=== PATIENT | male | born 1975 | race Caucasian/White ===

== ENCOUNTER 2019-01-09 05:42 | Inpatient (IN) | payer BC ==
[~2019-01-09] VITALS: Ht 172.7 cm; Wt 90.3 kg
[2019-01-09] MEDS ORDERED: SODIUM CHLORIDE 0.9% 1,000 ML IV ONE (06:06)
[2019-01-09 06:30] LABS: CHLORIDE 108 mEq/L (98-107)
[2019-01-09] MEDS ORDERED: LORAZEPAM 2MG/ML CPJ IV ONE (06:30)
[2019-01-09] MEDS ORDERED: DILTIAZEM HCL 5MG/ML 5ML VIAL IV ONE ×3 (06:30→08:30)
[2019-01-09 06:34] LABS: ETHANOL BLOOD < 10 mg/dL
[2019-01-09] MEDS ORDERED: CALCIUM CHLORIDE 1GM/10ML SYR IV ONE (06:45)
[2019-01-09 06:49] LABS: CLARITY URINE CLEAR (CLEAR); COLOR URINE YELLOW (YELLOW); KETONES URINE TRACE (NEGATIVE); LEUKOCYTE ESTERASE URINE NEGATIVE (NEGATIVE); NITRITE URINE NEGATIVE (NEGATIVE); OCCULT BLOOD URINE NEGATIVE (NEGATIVE); PROTEIN URINE NEGATIVE (NEGATIVE); SPECIFIC GRAVITY URINE 1.001 (1.005-1.030); UROBILINOGEN URINE 0.2 E.U./dL (0.2-1.0)
[2019-01-09 07:04] LABS: *AMPHETAMINES SCREEN URINE NEGATIVE (NEGATIVE); *BARBITURATES SCREEN URINE NEGATIVE (NEGATIVE); *BENZODIAZEPINES SCREEN URINE NEGATIVE (NEGATIVE); *COCAINE SCREEN URINE NEGATIVE (NEGATIVE); METHADONE URINE SCREEN NEGATIVE (NEGATIVE); OPIATES URINE SCREEN NEGATIVE (NEGATIVE)
[2019-01-09 07:05] LABS: CANNABINOID URINE SCREEN NEGATIVE (NEGATIVE); PHENCYCLIDINE URINE SCREEN NEGATIVE (NEGATIVE)
[2019-01-09] MEDS ORDERED: DILTIAZEM HCL 90MG TABLET PO ONE (07:15)
[2019-01-09 07:24] LABS: BASOPHILS % 0.6 % (0.0-2.0); EOSINOPHILS % 2.2 % (0.0-5.0); HEMATOCRIT. 42.8 % (42.0-52.0); HEMOGLOBIN. 15.4 g/dL (14.0-18.0); LYMPHOCYTES % 50.3 % (20.0-50.0); MEAN CORPUSCULAR HEMOGLOBIN 31.4 pg (28.0-32.0); MEAN CORPUSCULAR VOLUME 87.4 fL (80.0-94.0); MEAN PLATELET VOLUME 9.8 fl (7.4-10.4); MONOCYTES % 10.2 % (2.0-8.0); NEUTROPHILS % 36.7 % (40.0-76.0); PLATELET 265 x1000/uL (130-400); RED CELL DISTRIBUTION WIDTH 13.6 % (11.6-14.6)
[2019-01-09] MEDS ORDERED: DILTIAZEM HCL 125 MG in DEXT 5% WATER 100 ML IV ONE ×2 (08:30→08:45)
[2019-01-09] MEDS ORDERED: ONDANSETRON HCL 4MG/2ML INJ IV PRN (09:45)
[2019-01-09] MEDS ORDERED: LORAZEPAM 0.5MG TABLET PO PRN (09:45)
[2019-01-09] MEDS ORDERED: ACETAMINOPHEN 325MG TABLET PO PRN (09:45)
[2019-01-09] MEDS ORDERED: GUAIFENESIN 200MG/10ML SUGAR FREE UDC PO PRN (09:45)
[2019-01-09] MEDS ORDERED: MAGNESIUM/ALUMINUM HYDROXIDE/SIMETHICONE 30ML UDC PO PRN (09:45)
[2019-01-09] MEDS ORDERED: ZOLPIDEM TARTRATE 5MG TABLET PO PRN (09:45)
[2019-01-09] MEDS ORDERED: CLONIDINE 0.1MG TABLET PO PRN (09:45)
[2019-01-09] MEDS ORDERED: IPRATROPIUM/ALBUTEROL 0.5-3(2.5)MG/3ML NEB HHN PRN (09:45)
[2019-01-09] MEDS ORDERED: DOCUSATE SODIUM 100MG CAPSULE PO PRN (09:45)
[2019-01-09] MEDS: SODIUM CHLORIDE 0.9% 1,000 ML IV SCH ×2 (10:02→20:12)
[2019-01-09] MEDS ORDERED: ENOXAPARIN 60MG/0.6ML SYR SUBCUT SCH (11:00)
[2019-01-09 11:54] LABS: INR 1.1; PROTHROMBIN TIME 11.2 sec (9.6-11.0)
[2019-01-09] MEDS ORDERED: DILTIAZEM HCL 60MG TABLET PO SCH (12:00)
[2019-01-09] MEDS ORDERED: ENOXAPARIN 100MG/ML SYR SUBCUT SCH (12:00)
[2019-01-09 14:35] LABS: CREATINE KINASE 44 IU/L (39-308); CREATINE KINASE MB FRACTION < 1.0 ng/mL (0.5-3.6)
[2019-01-09 15:48] VITALS: BP 107/64
[2019-01-09 16:00] VITALS: BP 107/64
[2019-01-09] MEDS ORDERED: COLC0.6C3 PO (16:27)
[2019-01-09] MEDS: DILTIAZEM HCL 30MG TABLET PO SCH (18:00)
[2019-01-09 20:14] VITALS: BP 105/67
[2019-01-09] MEDS: FAMOTIDINE 20MG TABLET PO SCH (21:00)
[2019-01-09] MEDS ORDERED: ATORVASTATIN CALCIUM 10MG TABLET PO SCH (21:00)
[2019-01-09] MEDS: ENOXAPARIN 100MG/ML SYR SUBCUT SCH (21:42)
[2019-01-10] VITALS: BP 107/72
[2019-01-10] MEDS: DILTIAZEM HCL 30MG TABLET PO SCH ×2 (00:52→06:32)
[2019-01-10 04:00] VITALS: BP 105/67
[2019-01-10] MEDS: SODIUM CHLORIDE 0.9% 1,000 ML IV SCH (05:42)
[2019-01-10 07:09] LABS: BASOPHILS % 0.9 % (0.0-2.0); EOSINOPHILS % 2.3 % (0.0-5.0); HEMATOCRIT. 37.3 % (42.0-52.0); HEMOGLOBIN. 13.1 g/dL (14.0-18.0); LYMPHOCYTES % 43.3 % (20.0-50.0); MEAN CORPUSCULAR HEMOGLOBIN 31.5 pg (28.0-32.0); MEAN CORPUSCULAR VOLUME 89.8 fL (80.0-94.0); MEAN PLATELET VOLUME 9.8 fl (7.4-10.4); MONOCYTES % 9.8 % (2.0-8.0); NEUTROPHILS % 43.7 % (40.0-76.0); PLATELET 209 x1000/uL (130-400); RED BLOOD CELL COUNT 4.16 mill/uL (4.7-6.1)
[2019-01-10 07:22] LABS: CHLORIDE 112 mEq/L (98-107)
[2019-01-10 08:00] VITALS: BP 106/69
[2019-01-10] MEDS: FAMOTIDINE 20MG TABLET PO SCH (08:15)
[2019-01-10] MEDS: ENOXAPARIN 100MG/ML SYR SUBCUT SCH (08:16)
[2019-01-10] MEDS ORDERED: ASPIRIN 325MG EC TABLET PO SCH (09:00)
[2019-01-10 10:55] VITALS: BP 106/69
== END 2019-01-10 12:37 | disposition home or self-care (01) | DRG 310 ==
LOC: ER 05:42 → 6WST 08:21 → EDBEDREQ 08:41 → EDBEDREQTM 08:41 → SUPCPDRO 11:45 → ENRESERV 14:36
PROVIDERS: ADMIT Internal Medicine; ATTEND Internal Medicine
DX: I48.91 Unspecified atrial fibrillation (principal); E78.00 Pure hypercholesterolemia, unspecified; E78.5 Hyperlipidemia, unspecified; E83.42 Hypomagnesemia; F41.9 Anxiety disorder, unspecified; I10 Essential (primary) hypertension; I47.1 Supraventricular tachycardia; I48.92 Unspecified atrial flutter; Z82.49 Family history of ischemic heart disease and other diseases of the circulatory system; M10.9 Gout, unspecified; Z87.891 Personal history of nicotine dependence
CPT/HCPCS: 36415; 71045; 80048; 80061; 80305; 80320; 81003; 82550; 82553; 83036; 83735; 83880; 84439; 84443; 84484; 93005; 93306; 93970; 99285; J1650; J2060; J3490; J7030; J7060; G0480

== ENCOUNTER 2022-06-17 00:59 | Emergency (ER) | payer BC, OTHER ==
[~2022-06-17] VITALS: Ht 172.7 cm; Wt 92.0 kg
[~2022-06-17 00:59] MED LIST: COLC0.6C3 PO
[2022-06-17 01:16] VITALS: BP 133/88
== END 2022-06-17 03:30 | disposition left against medical advice (07) ==
LOC: ER 00:59
DX: Z53.21 Procedure and treatment not carried out due to patient leaving prior to being seen by health care provider (principal)